=== PATIENT | female | born 1980 | race Caucasian/White ===

== ENCOUNTER 2024-01-22 19:39 | Emergency (ER) | payer OTHER, SELFPAY ==
[2024-01-22 19:41] VITALS: BP 128/88
[2024-01-22 20:13] VITALS: BMI 22.8
--- NOTE | 2024-01-22 20:18 | EDRN ---
Pt has been under 'extreme stress' for the past 2 months that 'came to a head Tuesday.' Pt has been congested x 1 week. Pt went to her doctor on Tuesday because she had discomfort 'in my clitoral area' and cold symptoms. Pt was diagnosed with
herpes and put on valtrex 2g daily. Culture was sent but pt does not know results. Yesterday pt went for a run and when she returned, she noted a throbbing sensation in her glutes and hamstrings and her skin was painful to touch on her legs. Pt
took ibuprofen yesterday which did not help. Pt has been taking 1 benadryl PO intermittently which hasn't helped. Pt took tylenol at 1730 today and feels better now. Pt noted abdominal discomfort today. Pt has had dizziness, fatigue and 'I'm
mentally flighty today.' Pt came to ED to 'rule out infection because I'm on a high dose of valtrex.' Pt denies cp, sob, n/v, urinary symptoms, fever/chills.
[2024-01-22 20:56] LABS: Hematocrit 32.5 % (37.0-47.0); Hemoglobin 11.5 g/dL (12.0-16.0); Mean Corp Hgb Conc. 35.4 g/dL (33.0-37.0); Mean Corpuscular Hgb 30.9 pg (27.0-31.0); Mean Corpuscular Volume 87.4 fL (81.0-99.0); Mean Platelet Volume 9.8 fL (7.4-10.4); Platelet Count 259 10^3/uL (130-400); Red Blood Cell Count 3.72 10^6/uL (4.20-5.40); Red Cell Dist. Width 11.8 % (11.5-14.5); White Blood Cell Count 6.9 10^3/uL (4.8-10.8)
--- NOTE | 2024-01-22 21:08 | ED.GENMED ---
History of Present Illness
General
Chief Complaint: Bowel Problem
Source: patient
Exam Limitations: none
Time Seen by Provider: 01/22/24 20:01
Travel History
Have you had any contact with someone who has COVID-19?: No
Do you have any symptoms of coronavirus? Fever > 100 degrees, chills, cough, shortness of breath, sore throat, loss of taste or smell, muscle aches, or headache?: No
History of Present Illness
History of Present Illness:
43-year-old female otherwise healthy presents complaining of multiple issues. She has inflamed lymph node in the right groin. She has fatigue myalgias and she states her skin hurts. She started with congestion and upper respiratory symptoms about
10 days ago. She then developed a day where she had an excessive amount of normal bowel movements. Later that week she developed swelling in her vaginal area and pain in her vaginal area and was treated for potential herpes by her family doctor.
She has not yet heard the results of the vaginal culture. She has been on Valtrex 1 g twice a day for 4 days. She does not note any significant improvement. She denies a fever. No vomiting. Appetites been well. She is very active. She runs
regularly.
Past History
Past History
ED Past Medical History: None
ED Past Surgical History: None
Social History
Tobacco: Non-smoker
Phy Exam
Physical Exam
Physical Exam:
General: Well-appearing female no acute respiratory distress
HEENT: Normocephalic atraumatic mucosa moist neck is supple
Heart: Regular rate and rhythm no murmurs
Lungs: Clear to auscultation bilaterally no wheezing
Abdomen is soft nontender nondistended no guarding or rebound normal bowel sounds
Skin: Warm no rash or lesions. Painful inflamed right inguinal lymph node
Extremities: No cyanosis
Course
Orders/Labs/Results
Orders:
Orders
01/22/24 20:46
COVID-19 Antigen Urgent
Source: Nasal Swab
CPK [Creatine Phosphokinase] Urgent
Complete Blood Count/With Diff Urgent
Comprehensive Metabolic Panel Urgent
Lyme Progressive Stat
Manual Differential Urgent
Monotest Urgent
Influenza A+B Rapid Molecular Urgent
JEANETTE Source: Nasal Swab
Specimen Description:
Abnormal Lab Results
01/22/24
20:46
RBC 3.72 L 10^6/uL
(4.20-5.40)
Hgb 11.5 L g/dL
(12.0-16.0)
Hct 32.5 L %
(37.0-47.0)
Segmented Neutrophils 41 L %
(42-75)
Total Bilirubin 0.1 L mg/dl
(0.2-1.3)
Alkaline Phosphatase 35 L U/L
(38-126)
Creatine Kinase 196 H U/L
(30-135)
Total Protein 6.2 L g/dl
(6.3-8.2)
01/22/24 20:46
01/22/24 20:46
Vital Signs
Initial and Last Documented VS:
Initial Vital Signs
Temp Pulse Resp BP Pulse Ox
97.8 F 66 22 128/88 99
01/22/24 19:41 01/22/24 19:41 01/22/24 19:41 01/22/24 19:41 01/22/24 19:41
Last Documented Vital Signs
Temp Pulse Resp BP Pulse Ox
97.8 F 64 16 96/61 98
01/22/24 19:41 01/22/24 21:47 01/22/24 21:47 01/22/24 21:47 01/22/24 21:47
MDM/Problems Addressed
Differential Diagnosis Includes:
Multiple symptoms. Question viral illness. She has no other medical issues that are complicating today's care. She is outside frequently. Will check for Lyme. Patient currently being treated for potential vaginal herpes. Symptoms started
before onset of antiviral. Do not suspect adverse reaction to medication. Check COVID and flu and mono. Labs pending. Abdomen exam nonspecific. Considered CT but not indicated at this time
*Critical Care Note
Total Time (30-74mins, 75-104mins- exclusive of procedures): Not Applicable
Update Note
Update Note:
Workup here essentially unremarkable. COVID flu and mono were negative. CPK slightly elevated but not clinically significant. I suspect fatigue myalgias are likely due to to a viral illness. There is a Lyme test pending. She will receive a
call. Recommend close follow-up with family doctor and return precautions were given otherwise
ED Attending Note
-
Portions of this chart may have been created with voice recognition software.� Occasional wrong word or��sound alike� substitutions may have occurred due to the inherent limitations of voice recognition software.
Discharge Plan
Departure
Patient Disposition: Home (Routine Discharge)
Date of Disposition: 01/22/24
Time of Disposition: 22:08
Patient with high blood pressure during this ER visit?: No
Discharge Problem:
Acute viral syndrome
Instructions: Fatigue ED
Prescriptions:
No Action
multivitamin Tablet
1 tab PO DAILY
Patient Comments:
for vegans
valacyclovir [Valtrex] 1 gram Tablet
1,000 mg PO DAILY
Cbd Gummy With Melatonin
1 gummy PO HSPRN PRN (Reason: sleep)
Referrals:
Breanna Diaz PA-C [Family Provider] -
Activity Restrictions/Additional Instructions:
Please return here for worsening symptoms. You may use ibuprofen or Tylenol for aches or pains. You should receive a call if your Lyme test is positive. Follow-up with your family doctor otherwise
Interventions
Interventions:
*Risk Screen - Suicide Last Done: 01/22/24 19:41
*General Assessment Last Done: 01/22/24 20:13
*Neglect/Abuse Screening Last Done: 01/22/24 19:41
*ED COVID-19 Vaccine History Last Done: 01/22/24 19:57
IW-Ykqpod-Prebgojgdu Assessment Last Done: 01/22/24 20:13
ED-Skin Assessment Last Done: 01/22/24 20:13
Discharge Date and Time
Print Language: LIBERIAN
[2024-01-22 21:11] LABS: COVID-19 Antigen Negative (Negative)
[2024-01-22 21:15] LABS: ALT (SGPT) 18 U/L (0-35); AST (SGOT) 33 U/L (14-36); Albumin 3.8 g/dl (3.5-5.0); Alkaline Phosphatase 35 U/L (38-126); Blood Urea Nitrogen 9 mg/dl (7-17); Calcium 9.1 mg/dl (8.4-10.2); Carbon Dioxide 29 mmol/L (22-30); Chloride 99 mmol/L (98-107); Creatine Phosphokinase 196 U/L (30-135); Estimated Creatinine Clearance 111 ml/min; Glucose 99 mg/dl (70-99); Potassium 4.2 mmol/L (3.5-5.1); Sodium 135 mmol/L (135-145); Total Bilirubin 0.1 mg/dl (0.2-1.3); Total Protein 6.2 g/dl (6.3-8.2); eGFR > 60.00
[2024-01-22 21:17] LABS: Monotest Negative (Negative)
[2024-01-22 21:25] LABS: Atypical Lymphocytes 2 %; Eosinophils 3 % (0-6); Lymphocytes 46 % (20-51); Monocytes 8 % (2-9); Segmented Neutrophils 41 % (42-75)
[2024-01-22 21:26] LABS: Anisocytosis 1+; Microcytosis 1+; Normal RBC Morphology No; Total Cells Counted 100
[2024-01-22 21:27] LABS: Platelets Checked Yes
[2024-01-22 21:47] VITALS: BP 96/61
[2024-01-23 16:32] LABS: Lyme Antibody Screen, EIA Negative (Negative)
== END 2024-01-22 22:20 | disposition home or self-care (01) ==
LOC: EMR 19:39
PROVIDERS: Physician Assistant; EMERGENCY PHYSICIAN Emergency Medicine; FAMILY PHYSICIAN Physician Assistant Medical
DX: B34.9 Viral infection, unspecified (principal); Z11.52 Encounter for screening for COVID-19
CPT/HCPCS: 99283; 80053; 82550; 85025; 86308; 86618; 87502; 87811

== ENCOUNTER → 2024-07-24 12:31 | Outpatient (REF) | payer OTHER, SELFPAY | LOC: WDC 12:31 | PROVIDERS: ATTENDING PHYSICIAN Nurse Practitioner Family; FAMILY PHYSICIAN Physician Assistant Medical | DX: Z12.31 Encounter for screening mammogram for malignant neoplasm of breast (principal) | CPT/HCPCS: 77063; 77067 ==

== ENCOUNTER → 2025-08-19 08:56 | Outpatient (REF) | payer BC, SELFPAY | LOC: WDC 08:56 | PROVIDERS: ATTENDING PHYSICIAN Nurse Practitioner Family; FAMILY PHYSICIAN Physician Assistant Medical | DX: Z12.31 Encounter for screening mammogram for malignant neoplasm of breast (principal) | CPT/HCPCS: 77063; 77067 ==